=== PATIENT | male | born 1950 | race Two or more races ===

== ENCOUNTER 2016-06-03 11:56 | Emergency (ER) | payer MEDICAID ==
[~2016-06-03] VITALS: Ht 162.6 cm; Wt 68.0 kg
[2016-06-03 14:32] VITALS: BP 153/90
== END 2016-06-03 15:23 | disposition home or self-care (01) ==
LOC: ER 12:45
DX: M77.9 Enthesopathy, unspecified (principal)
CPT/HCPCS: 73130